=== PATIENT | female | born 1995 | race American Indian/Alaskan Native ===

== ENCOUNTER 2018-03-09 09:33 | Emergency (ER) | payer MEDICAID ==
--- NOTE | 2018-03-09 12:39 | Emergency Department Report ---
ED Laceration HPI - HPI Chief Complaint: Laceration/Recheck/Suture Stated Complaint: HEAD LAC Time Seen by Provider: 03/09/18 12:03 Occurred When: Today Location: Head Severity: moderate Tetanus Status: Up to Date Laceration Symptoms: Yes Pain, No Foreign Body Sensation, No Numbness, No Weakness Other History: Patient is a 22-year-old black female with a past medical history of being 7 was who had her car trunk open and she stood up and hit her head on the car trunk she has a laceration just distal to the front hairline. There is no loss of consciousness. ED Review of Systems ROS: Stated complaint: HEAD LAC Other details as noted in HPI Comment: All other systems reviewed and negative ED Past Medical Hx - Past Medical History Previous Medical History?: No - Surgical History Past Surgical History?: No - Social History Smoking Status: Never Smoker Substance Use Type: None Laceration Physical Exam - Exam General: Vital signs noted. No distress. Alert and acting appropriately. Wound Length (cm): 2 (patient has a laceration to the frontal forehead just behind the hairline) Laceration Location: Head Laceration Exam: Yes Normal Distal CMS, No Foreign Body, No Exposed Tendon, Vessel, or Nerve, No Tendon Injury ED Course Vital Signs 03/09/18 09:46 Temperature 98.2 F Pulse Rate 107 H Respiratory 16 Rate Blood Pressure 118/52 O2 Sat by Pulse 96 Oximetry - Laceration /Wound Repair Head Wound Length (cm): 2 Wound's Depth, Shape: superficial Wound Explored: clean Irrigated w/ Saline (ccs): 200 Betadine Prep?: Yes Anesthesia: Lidocaine w/ Epi Number of Sutures: 5 (cintia were placed) Sterile Dressing Applied?: Yes Critical care attestation.: If time is entered above; I have spent that time in minutes in the direct care of this critically ill patient, excluding procedure time. ED Disposition Clinical Impression: Laceration Disposition: [id number]-01 TO HOME OR SELFCARE Is pt being admited?: No Does the pt Need Aspirin: No Condition: Stable Additional Instructions: your cintia will need to be removed in 7 days. Please return to the emergency department or urgent care or your primary care physician. Referrals: PRIMARY CARE, [Primary Care Provider] - 3-5 Days
[2018-03-09 13:06] VITALS: BP 109/33
== END 2018-03-09 13:07 | disposition home or self-care (01) ==
LOC: EDBD → ED 09:33
DX: S01.81XA Laceration without foreign body of other part of head, initial encounter (principal); W22.8XXA Striking against or struck by other objects, initial encounter; Y93.89 Activity, other specified; Y92.89 Other specified places as the place of occurrence of the external cause; Y99.8 Other external cause status